=== PATIENT | female | born 1955 | race Caucasian/White ===

== ENCOUNTER 2019-09-08 15:34 | Outpatient (CLI) | payer BC ==
--- NOTE | 2019-09-08 17:52 | MRI ---
MRI of the right wrist with and without IV contrast INDICATION: History of painful trauma of the right wrist COMPARISON: None TECHNIQUE: Multiplanar multisequence MR images were obtained of the right wrist with and without cont rast. Patient received 7 cc of MultiHance for the examination due to a low GFR. FINDINGS: There is a mildly T2 hyperintense, T1 hypointense mass lesion that it is contiguous and ext ends along the palmar margin of the median nerve at the level of the transverse carpal ligament measuring 2.9 x 2.3 x 0.8 cm. This lesion only mildly enhances. The transverse carpal band is not see n and is presumed to be surgically absent. The FCR and FCU tendons are intact. The FDS and FDP tendons are intact. There is mild tendinosis and a small partial-thickness split tear involving the E CU tendon at the level of the distal ulnar head. Remaining extensor tendons are intact. The intrinsic and extrinsic ligaments of the wrist appear intact. No marrow signal abnormality is evident . The TFC is intact. There is mild to moderate first CMC osteoarthrosis. IMPRESSION: 1. 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 2. Partial-thickness split tear of the ECU tendon at the level of the distal ulnar head. 3. Mild/moderate first CMC osteoarthrosis.
== END 2019-09-08 15:35 | disposition home or self-care (01) ==
LOC: BICMRI 15:34
PROVIDERS: ATTEND Orthopaedic Surgery Hand Surgery
DX: D36.10 Benign neoplasm of peripheral nerves and autonomic nervous system, unspecified (principal); M18.11 Unilateral primary osteoarthritis of first carpometacarpal joint, right hand; S66.811A Strain of other specified muscles, fascia and tendons at wrist and hand level, right hand, initial encounter
CPT/HCPCS: 82565

== ENCOUNTER 2020-10-25 10:19 | Outpatient (CLI) | payer MEDICARE ==
[2020-10-25 12:29] LABS: Hemoglobin 12.2 g/dL (12.0-15.5); Mean Corpuscular Hemoglobin 31.9 pg (27.0-33.0); Mean Corpuscular Volume 99.5 fl (81.6-98.3); Mean Platelet Volume 10.7 fl (7.4-10.4); Platelet Count 280 10x3/uL (150-450); RBC Distribution Width 13.4 % (11.5-14.5); Red Blood Cell (RBC) Count 3.83 10x6/uL (3.90-5.03); White Blood Cell (WBC) Count 6.4 10x3/uL (3.5-10.5)
[2020-10-25 13:26] LABS: INR-International Normal Ratio 0.9; Prothrombin Time 10.3 sec (9.5-12.1)
[2020-10-25 13:31] LABS: Anion Gap 13 mmol/L (10-20); BUN (Urea Nitrogen) 24 mg/dL (9.8-20.1); Calc. Creatinine Clearance 0 mL/min (70-130); Calcium 9.2 mg/dL (7.8-10.44); Carbon Dioxide 30 mmol/L (23-31); Chloride 106 mmol/L (98-107); Glucose 86 mg/dL (80-115); Potassium 4.6 mmol/L (3.5-5.1); Sodium 144 mmol/L (136-145)
[2020-10-26 10:34] LABS: SARS-CoV-2 PCR by NAA Not Detected (NotDetected)
== END 2020-10-25 10:20 | disposition home or self-care (01) ==
LOC: LABBT 10:19
PROVIDERS: ATTEND Internal Medicine Cardiovascular Disease
DX: Z01.812 Encounter for preprocedural laboratory examination (principal); I48.0 Paroxysmal atrial fibrillation; Z20.822 Contact with and (suspected) exposure to COVID-19
CPT/HCPCS: 80048; 85027; 85610; U0003; U0005

== ENCOUNTER 2022-09-15 08:50 | Outpatient (CLI) | payer MEDICARE | END 2022-09-15 08:51 | disposition home or self-care (01) | LOC: BICULT 08:50 | PROVIDERS: ATTEND Urology | DX: N20.0 Calculus of kidney (principal); E21.3 Hyperparathyroidism, unspecified | CPT/HCPCS: 76770 ==

== ENCOUNTER 2023-09-29 14:52 | Outpatient (CLI) | payer MEDICARE | END 2023-09-29 14:53 | disposition home or self-care (01) | LOC: BICULT 14:52 | PROVIDERS: ATTEND Urology | DX: N20.0 Calculus of kidney (principal); R35.0 Frequency of micturition; E21.3 Hyperparathyroidism, unspecified | CPT/HCPCS: 36415; 76770; 80048; 81001; 87077; 87086; 87186 ==